=== PATIENT | female | born 1955 | race Caucasian/White ===

== ENCOUNTER 2022-12-29 18:19 | Inpatient (IN) ==
[2022-12-29] MEDS ORDERED: dilTIAZem HCl 5 MG/ML 5 ML VIAL IV STA (18:54)
[2022-12-29] MEDS ORDERED: STAT IV Infusion **Titration per Protocol STA (18:54)
[2022-12-29 18:55] LABS: Basophils # (auto) 0.05 K/uL (0-0.2); Basophils % (auto) 0.4 %; Eosinophils # (auto) 0.09 K/uL (0-0.50); Eosinophils % (auto) 0.7 %; Hematocrit (blood only) 46.1 % (37.0-47.0); Hemoglobin 14.6 g/dl (12.0-16.0); Immature Granulocytes # (auto) 0.03 K/uL (0.01-0.20); Immature Granulocytes % (auto) 0.2 %; Lymphocytes # (auto) 3.39 K/uL (1.2-3.4); Mean Corpuscular Hemoglobin 26.8 pg (25.0-34.0); Mean Corpuscular Hgb Conc 31.7 g/dL (32.0-36.0); Mean Corpuscular Volume 84.6 fL (80.0-100.0); Mean Platelet Volume 9.1 fL (9.4-12.4); Monocytes # (auto) 0.81 K/uL (0.11-0.59); Monocytes % (auto) 6.7 %; Neutrophils # (auto) 7.73 K/uL (1.40-6.50); Platelet Count 340 K/uL (130-400); RDW Coefficient of Variation 16.8 % (11.5-14.5); RDW Standard Deviation 50.9 fL (36.4-46.3); Red Blood Count 5.45 M/uL (4.20-5.40)
--- NOTE | 2022-12-29 18:58 | Emergency Department Note ---
Impression & Plan Atrial fibrillation with rapid ventricular response, Memory changes, Anticoagulant long-term use ED Provider Note Provider: Lna Rivera MD DATE OF SERVICE: 12/29/2022 CHIEF COMPLAINT: Palpitations, A-fib, dizziness, confusion HISTORY OF PRESENT ILLNESS: Patient is a 67-year-old female reported history of diabetes, hyperlipidemia, CAD with stent, and A-fib presenting here today stating she is been in and out of A-fib. Over the past several weeks has been spearing seeing some confusion focus and memory issues and has been worsening. States has been dizzy at times but has not fallen. Denies any significant headache currently but has had some posterior headache at times. Denies si gnificant chest pain. Ports intermittent palpitations. Denies significant leg swelling or GI upset but not much of an appetite. States she is just not feeling herself. Evidently was admitted recently [facility] and was converted back to normal sinus rhythm and discharged. States she has been on metoprolol and taking her Xarelto. Taking just 50 mg of metoprolol extended release. 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 NECK: Trachea midline. Supple. ENT: Mucous membranes pink and moist. LUNGS: Airway patent. No retractions. Breath sounds clear HEART: Irregular irregular rate and rhythm. No chest wall tenderness ABDOMEN: Soft and non-tender, without guarding or rebound. SKIN: Acyanotic, warm, dry, without rashes EXTREMITIES: Without swelling, tenderness or deformity NEUROLOGICAL: No focal deficits. No aphasia. No facial droop or slurred speech. EK bpm atrial fibrillation with rapid ventricular response. No clear acute ST segment elevation or depression with a QTc of approximately 475. CONTINUOUS CARDIAC MONITORING: was ordered and showed a heart rate of 90s-150s bpm in atrial fibrillation 1 view chest x-ray per my interpretation no evidence of pneumonia, pneumothorax, or significant fluid overload/pulmonary edema. No free air under the diaphragm. Patient's laboratory studies and imaging reviewed. Differential includes Premature contractions, electrolyte abnormality, cardiac dysrhythmia, thyroid dysfunction, pulmonary embolism, infection, gastrointestinal, stroke/CVA, infection, as well as other pathologies. IMPRESSION/MEDICAL DECISION MAKING: Patient with known history of atrial fibrillation anticoagulated on Xarelto. Questions some headache as well as some fogginess and fatigue and memory issues and again now back in atrial fibrillation. In rapid ventricular spots upon arrival. Given some diltiazem and diltiazem drip ordered. Anticoagulated appropriately at this time. Ongoing neuro symptoms have been present for several weeks. Sent for CT head to look for any acute intracranial abnormality such as bleeding or evidence of stroke. Blood work here without anemia. Mild leukocytosis but of unclear significance. No severe electrolyte abnormalities with normal renal function. No troponin elevation at this time. May be a bit of decreased appetite but no other GI symptoms. No numbness or tingling or weakness in the extremities. No facial droop or slurred speech at this time. Will bring in for further evaluation of her neuro complaints as well as t reatment of her rapid A-fib. Does not request for records from recent hospitalization at [place]. DIAGNOSIS: A-fib RVR, fatigue and memory issues, hypomagnesemia DISPOSITION: Hospitalist will evaluate Patient was agreeable with this plan. Critical Care I have personally spent 32 minutes of critical care time in the direct management of this patient. This includes bedside care, interpretation of diagnostic studies, and testing, discussion with consultants, patient, and family members, and other required patient management activities. These 32 minutes is in excess of all separately billable procedures. Past Med/Surg History Social History Smoking Status: Never smoker Feels Safe at Home: Yes Allergies Allergies Allergy/AdvReac Type Severity Reaction Status Date / Time fish oil Allergy Severe Anaphylaxis Verified 12/29/22 19:34 morphine AdvReac (makes me Verified 12/29/22 19:34 magdalena) Home Meds Home Medications Medication Instructions Recorded Confirmed atorvastatin 80 mg tablet 80 mg PO DAILY 12/29/22 12/29/22 clopidogrel 75 mg tablet 75 mg PO DAILY 12/29/22 12/29/22 cyanocobalamin (vitamin B-12) 500 500 mcg PO DAILY 12/29/22 12/29/22 mcg tablet (Vitamin B-12) empagliflozin 10 mg tablet 10 mg PO QAM 12/29/22 12/29/22 (Jardiance) ferrous sulfate 325 mg (65 mg 325 mg PO DAILY 12/29/22 12/29/22 iron) tablet (iron) magnesium oxide 400 mg (241.3 mg 400 mg PO DAILY 12/29/22 12/29/22 magnesium) tablet metformin 500 mg tablet 500 mg PO BIDWMEAL 12/29/22 12/29/22 metoprolol succinate 50 mg 50 mg PO HS 12/29/22 12/29/22 tablet,extended release 24 hr pantoprazole 40 mg tablet,delayed 40 mg PO DAILY 12/29/22 12/29/22 release rivaroxaban 20 mg tablet (Xarelto) 20 mg PO DAILY 12/29/22 12/29/22 sacubitril 49 mg-valsartan 51 mg 1 tab PO BID 12/29/22 12/29/22 tablet (Entresto) spironolactone 25 mg tablet 25 mg PO DAILY 12/29/22 12/29/22 Results & Data (ED) Vital Signs Vital Signs - 24 hr 12/29/22 18:25 12/29/22 18:59 12/29/22 18:59 Temperature 36.8 C Temperature Source Temporal Artery Scan Pulse Rate 106 H 140 H Pulse Rate [Apical] Pulse Rhythm Irregular Pulse Rhythm [Apical] Pulse Strength [Apical] Respiratory Rate 20 16 Respiratory Effort / Characteristics Non-Labored Respiratory Depth Normal Respiratory Pattern Blood Pressure 116/80 Blood Pressure [Left Arm] Blood Pressure Mean 92 Blood Pressure Mean [Left Arm] Blood Pressure Position [Left Arm] Pulse Oximetry 95 98 98 Oxygen Delivery Method Room Air Room Air Oxygen Flow Rate 0 0 Sepsis Recent Fever Within 48 Hours No Sepsis New/Unexplained Change in Mental Status N/A Sepsis Action Taken by Nursing No Action Required 12/29/22 19:43 12/29/22 18:55 Temperature Temperature Source Pulse Rate 134 H Pulse Rate [Apical] 117 H Pulse Rhythm Pulse Rhythm [Apical] Irregular Pulse Strength [Apical] Normal Respiratory Rate 16 Respiratory Effort / Characteristics Non-Labored Spontaneous Respiratory Depth Normal Respiratory Pattern Regular Blood Pressure Blood Pressure [Left Arm] 110/84 Blood Pressure Mean Blood Pressure Mean [Left Arm] 92 Blood Pressure Position [Left Arm] Semi-fowlers Pulse Oximetry 96 Oxygen Delivery Method Room Air Oxygen Flow Rate Sepsis Recent Fever Within 48 Hours Sepsis New/Unexplained Change in Mental Status Sepsis Action Taken by Nursing Laboratory Data 12/29/22 18:35 12/29/22 18:35 Lab Results 12/29/22 12/29/22 12/29/22 Range/Units 18:35 18:35 18:35 WBC 12.10 H (4.8-10.8) K/ul RBC 5.45 H (4.20-5.40) M/uL Hgb 14.6 (12.0-16.0) g/dl Hct 46.1 (37.0-47.0) % MCV 84.6 (80.0-100.0) fL MCH 26.8 (25.0-34.0) pg MCHC 31.7 L (32.0-36.0) g/dL RDW Std Deviation 50.9 H (36.4-46.3) fL RDW Coeff of [place] 16.8 H (11.5-14.5) % Plt Count 340 (130-400) K/uL MPV 9.1 L (9.4-12.4) fL Immature Gran % (Auto) 0.2 % Neut % (Auto) 64.0 % Lymph % (Auto) 28.0 % [place] % (Auto) 6.7 % Eos % (Auto) 0.7 % Baso % (Auto) 0.4 % Neut # (Auto) 7.73 H (1.40-6.50) K/uL Lymph # (Auto) 3.39 (1.2-3.4) K/uL [place] # (Auto) 0.81 H (0.11-0.59) K/uL Eos # (Auto) 0.09 (0-0.50) K/uL Baso # (Auto) 0.05 (0-0.2) K/uL Immature Gran # (Auto) 0.03 (0.01-0.20) K/uL PT 14.6 H (9.0-12.0) Seconds INR 1.4 H (0.9-1.1) APTT 31.7 H (21.0-31.0) Seconds PTT Ratio 1.1 Sodium 137 (136-145) mmol/L Potassium 3.9 (3.5-5.1) mmol/L Chloride 106 (98-107) mmol/L Carbon Dioxide 23 (21-32) mmol/L Anion Gap 8 (3-11) BUN 27 H (6-23) mg/dl Creatinine 1.11 (0.6-1.2) mg/dl Est Cr Clr Drug Dosing 44.2 ml/min Est GFR ( Amer) 59.5 ml/min Est GFR (Non-Af Amer) 51.3 ml/min BUN/Creatinine Ratio 24.3 H (10-20) Glucose 99 (70-99(Fasting)) mg/dl Calcium 9.8 (8.6-10.3) mg/dl Magnesium 1.6 L (1.7-2.4) mg/dl Total Bilirubin 0.8 (0.2-1.0) mg/dl AST 17 (13-39) U/L ALT 22 (7-52) U/L Alkaline Phosphatase 101 (34-104) U/L Troponin I High Sens 12.1 (0-14) pg/ml Total Protein 7.4 (6.0-8.3) gm/dl Albumin 4.2 (3.4-5.0) gm/dl Globulin 3.2 (2.5-4.0) gm/dl Albumin/Globulin Ratio 1.3 (0.9-2) TSH (0.300-4.500) uIu/ml Urine Color Urine Appearance (Clear) Urine pH (4.5-7.5) Ur Specific [place] (1.000-1.030) Urine Protein (Negative) Urine Glucose (UA) (Negative) Urine Ketones (Negative) Urine Blood (Negative) Urine Nitrite (Negative) Urine Bilirubin (Negative) Urine Urobilinogen (Negative) Ur Leukocyte Esterase (Negative) Urine WBC (Auto) (0-5) /hpf Urine RBC (Auto) (0-4) /hpf U Hyaline Cast (Auto) (0-5) /lpf U Epithel Cells (Auto) (0-5) /lpf Urine Bacteria (Auto) (Negative) SARS-CoV-2, RNA, NAAT (NEGATIVE) 12/29/22 12/29/22 12/29/22 Range/Units 18:35 19:30 19:38 WBC (4.8-10.8) K/ul RBC (4.20-5.40) M/uL Hgb (12.0-16.0) g/dl Hct (37.0-47.0) % MCV (80.0-100.0) fL MCH (25.0-34.0) pg MCHC (32.0-36.0) g/dL RDW Std Deviation (36.4-46.3) fL RDW Coeff of [place] (11.5-14.5) % Plt Count (130-400) K/uL MPV (9.4-12.4) fL Immature Gran % (Auto) % Neut % (Auto) % Lymph % (Auto) % [place] % (Auto) % Eos % (Auto) % Baso % (Auto) % Neut # (Auto) (1.40-6.50) K/uL Lymph # (Auto) (1.2-3.4) K/uL [place] # (Auto) (0.11-0.59) K/uL Eos # (Auto) (0-0.50) K/uL Baso # (Auto) (0-0.2) K/uL Immature Gran # (Auto) (0.01-0.20) K/uL PT (9.0-12.0) Seconds INR (0.9-1.1) APTT (21.0-31.0) Seconds PTT Ratio Sodium (136-145) mmol/L Potassium (3.5-5.1) mmol/L Chloride (98-107) mmol/L Carbon Dioxide (21-32) mmol/L Anion Gap (3-11) BUN (6-23) mg/dl Creatinine (0.6-1.2) mg/dl Est Cr Clr Drug Dosing ml/min Est GFR ( Amer) ml/min Est GFR (Non-Af Amer) ml/min BUN/Creatinine Ratio (10-20) Glucose (70-99(Fasting)) mg/dl Calcium (8.6-10.3) mg/dl Magnesium (1.7-2.4) mg/dl Total Bilirubin (0.2-1.0) mg/dl AST (13-39) U/L ALT (7-52) U/L Alkaline Phosphatase (34-104) U/L Troponin I High Sens (0-14) pg/ml Total Protein (6.0-8.3) gm/dl Albumin (3.4-5.0) gm/dl Globulin (2.5-4.0) gm/dl Albumin/Globulin Ratio (0.9-2) TSH 1.537 (0.300-4.500) uIu/ml Urine Color Yellow Urine Appearance Clear (Clear) Urine pH 5.5 (4.5-7.5) Ur Specific [place] 1.017 (1.000-1.030) Urine Protein Negative (Negative) Urine Glucose (UA) 3+ H (Negative) Urine Ketones Negative (Negative) Urine Blood Negative (Negative) Urine Nitrite Negative (Negative) Urine Bilirubin Negative (Negative) Urine Urobilinogen Negative (Negative) Ur Leukocyte Esterase 1+ H (Negative) Urine WBC (Auto) 1-5 (0-5) /hpf Urine RBC (Auto) 0-4 (0-4) /hpf U Hyaline Cast (Auto) 0 (0-5) /lpf U Epithel Cells (Auto) 10-20 H (0-5) /lpf Urine Bacteria (Auto) Negative (Negative) SARS-CoV-2, RNA, NAAT NEGATIVE (NEGATIVE) Administered Medications Diltiazem HCl 125 mg/ Dextrose 125 mls @ 7.5 mls/hr IV .[id number] [facility]; Protocol Stop: 01/28/23 18:59 Last Titration: 12/29/22 20:13 Dose: 7.5 mg/hr, 7.5 mls/hr Documented By: ZUHAIR Co-signed By: DAPHNE Admin: 12/29/22 19:31 Dose: 5 mg/hr, 5 mls/hr Documented By: ZUHAIR Co-signed By: DAPHNE Magnesium Sulfate/Dextrose (Magnesium Sulfate / D5w) 1 gm in 100 mls @ 200 mls/hr IV Q30M [facility] Stop: 12/29/22 21:14 Last Admin: 12/29/22 20:47 Dose: 200 mls/hr Documented By: Infusion: 12/29/22 20:42 Dose: 0 mls/hr Documented By: Admin: 12/29/22 20:12 Dose: 200 mls/hr Documented By: ZUHAIR Discontinued Medications Diltiazem HCl (Diltiazem Hcl 5 Mg/Ml 5 Ml Vial) 10 mg IV NOW STA Stop: 12/29/22 18:55 Last Admin: 12/29/22 19:07 Dose: 10 mg Documented By: ZUHAIR Co-signed By: DAPHNE Miscellaneous (Stat Iv Infusion Titration Per Protocol) 1 each N/A NOW STA Stop: 12/29/22 18:55 Last Admin: 12/29/22 19:45 Dose: Not Given Documented By: ZUHAIR Imaging Data Radiologist's Impression: Head CT 12/29/22 18:54 Exam(s): CT HEAD Without Contrast EXAM: CT Head Without Intravenous Contrast CLINICAL HISTORY: Reason for exam: confusion. TECHNIQUE: Axial computed tomography images of the head/brain without intravenous contrast. CTDI is 37.22 mGy and DLP is 624.41 mGy-cm. Automated exposure control was utilized for the study. A dose lowering technique was utilized adhering to the principles of ALARA. COMPARISON: No relevant prior studies available. FINDINGS: Brain: Unremarkable. No hemorrhage. No significant white matter disease. No edema. Ventricles: Unremarkable. No ventriculomegaly. Bones/joints: Unremarkable. No acute fracture. Soft tissues: Unremarkable. Sinuses: Unremarkable as visualized. No acute sinusitis. Mastoid air cells: Unremarkable as visualized. No mastoid effusion. IMPRESSION: Normal head/brain CT. Electronically signed by: Sharif Barillas MD 12/29/22 20:19 PM Discharge Plan Visit Data Chief Complaint: Cardiac Assessment Stated Complaint: A FIB,CONFUSION ED Provider: Lan Rivera Discharge Problem: Atrial fibrillation with rapid ventricular response, Memory changes, Anticoagulant long-term use Patient Disposition: Being Evaluated by Hospitalist Forms Stand Alone Forms: [employer] Prescriptions Prescriptions: No Action metformin 500 mg tablet 500 mg PO BIDWMEAL atorvastatin 80 mg tablet 80 mg PO DAILY metoprolol succinate 50 mg tablet extended release 24 hr 50 mg PO HS clopidogrel 75 mg tablet 75 mg PO DAILY spironolactone 25 mg tablet 25 mg PO DAILY magnesium oxide 400 mg (241.3 mg magnesium) tablet 400 mg PO DAILY pantoprazole 40 mg tablet,delayed release (DR/EC) 40 mg PO DAILY Xarelto 20 mg tablet 20 mg PO DAILY Jardiance 10 mg tablet 10 mg PO QAM Entresto 49-51 mg tablet 1 tab PO BID cyanocobalamin (vitamin B-12) [Vitamin B-12] 500 mcg Tablet 500 mcg PO DAILY ferrous sulfate [iron] 325 mg (65 mg iron) Tablet 325 mg PO DAILY Referrals Referrals: PCP,NO [Primary Care Provider] -
[2022-12-29 19:12] LABS: Albumin Globulin Ratio 1.3 (0.9-2); Albumin Level 4.2 gm/dl (3.4-5.0); BUN Creatinine Ratio 24.3 (10-20); Bilirubin,Total 0.8 mg/dl (0.2-1.0); Calcium 9.8 mg/dl (8.6-10.3); Creatinine Clr Calc Pharmacy 44.2 ml/min; Est GFR (African American) 59.5 ml/min; Est GFR (Non-African American) 51.3 ml/min; Globulin 3.2 gm/dl (2.5-4.0); Potassium 3.9 mmol/L (3.5-5.1); Total Protein 7.4 gm/dl (6.0-8.3)
[2022-12-29 19:18] LABS: Troponin I High Sensitivity 12.1 pg/ml (0-14)
[2022-12-29 19:24] LABS: INR 1.4 (0.9-1.1); Partial Thromboplastin Ratio 1.1; Partial Thromboplastin Time 31.7 Seconds (21.0-31.0); Prothrombin Time 14.6 Seconds (9.0-12.0)
[2022-12-29] MEDS: dilTIAZem HCL 125 MG in DEXTROSE 5% 100 ML IV SCH (19:31)
[2022-12-29 19:39] LABS: Magnesium 1.6 mg/dl (1.7-2.4)
[2022-12-29] MEDS: MAGNESIUM SULFATE / D5W 1 GM/100 ML BAG IV SCH ×2 (20:12→20:47)
[2022-12-29 20:17] LABS: Appearance Urine Clear (Clear); Bacteria Urine Automated Negative (Negative); Bilirubin Urine Negative (Negative); Blood Urine Negative (Negative); Cast Urine Automated 0 /lpf (0-5); Color Urine Yellow; Glucose Urine UA 3+ (Negative); Ketones Urine Negative (Negative); Leukocyte Esterase Urine 1+ (Negative); Nitrite Urine Negative (Negative); Protein Urine Negative (Negative); RBC Urine Automated 0-4 /hpf (0-4); Specific Gravity Urine 1.017 (1.000-1.030); Urobilinogen Urine Negative (Negative); pH Urine 5.5 (4.5-7.5)
--- NOTE | 2022-12-29 20:19 | CT Scan Report ---
Exam(s): CT HEAD Without Contrast EXAM: CT Head Without Intravenous Contrast CLINICAL HISTORY: Reason for exam: confusion. TECHNIQUE: Axial computed tomography images of the head/brain without intravenous contrast. CTDI is 37.22 mGy and DLP is 624.41 mGy-cm. Automated exposure control was utilized for the study. A dose lowering technique was utilized adhering to the principles of ALARA. COMPARISON: No relevant prior studies available. FINDINGS: Brain: Unremarkable. No hemorrhage. No significant white matter disease. No edema. Ventricles: Unremarkable. No ventriculomegaly. Bones/joints: Unremarkable. No acute fracture. Soft tissues: Unremarkable. Sinuses: Unremarkable as visualized. No acute sinusitis. Mastoid air cells: Unremarkable as visualized. No mastoid effusion. IMPRESSION: Normal head/brain CT. Electronically signed by: Sharif Barillas MD 12/29/22 20:19 PM
--- NOTE | 2022-12-29 20:51 | History & Physical Report ---
Date of Service December 29, 2022 Assessment & Plan (1) Atrial fibrillation with rapid ventricular response: Plan: 67 yo female with PMHx HLD, DM2, CAD w/ stent, CHF, and afib on xarelto presents with afib rvr and confusion. #Afib w/ RVR -presents with 3 weeks of increased frequency of symptomatic afib rvr. HR 140 on arrival. -chronically on xarelto and metoprolol, continue. -started on diltiazem bolus/drip in ED, continue. As below would reconsider diltiazem drip if EF found to be low or becomes hypotensive and consider amiodarone vs digoxin instead. -echo pending -cardiology consulted #Confusion -presented with 3 weeks intermittent confusion, brain fog, dizziness. Ddx hypoperfusion 2/2 afib rvr, stroke, age related changes. Mild leukocytosis however does not appear to be infectious etiology. -CT head negative -ordered MRI to r/o stroke -afib control as above -cont. to monitor #CAD w/ stent #History of CHF -had massive [place] with cardiac arrest 2 years ago which required stenting. EF was suppressed following this with subsequent improvement with EF in 50s per patient history. In process of obtaining medical records from [place]. -cont. plavix, metoprolol, Entresto, spironolactone. #HLD -cont. home statin #DM2 -hold home Jardiance, metformin -started SSI #GERD -cont. home pantoprazole DVT ppx: xarelto FEN/GI: HH, DM2 Code Status: full Dispo: PCU (2) Hyperlipidemia: (3) DM2 (diabetes mellitus, type 2): (4) CAD (coronary artery disease): (5) History of intravascular stent placement: (6) History of CHF (congestive heart failure): (7) Confusion: History of Present Illness Chief Complaint: afib, confusion Primary Care Provider: NO PCP 67 yo female with PMHx HLD, DM2, CAD w/ stent, CHF, and afib on xarelto presents with afib rvr and confusion. 3 weeks ago patient started having increased frequency of palpitations and dizziness which she states is due to her afib when HR is >130s. This occurs as many as 3-4x/day. Since symptom onset she also endorses having periods of intermittent confusion and brain fog which is new for her. Denies falls. Denies fever, headache, vision changes, chest pain, shortness of breath, abdominal pain, nausea, vomiting, constipation, diarrhea, dysuria, extremity paresthesia/weakness. She has been compliant with her home medications. She follows with Dr. Avila at [facility] for her heart issues. She has been compliant with her medications. Of note she was recently seen in [place] 3 days ago for similar symptoms. She was deemed stable for discharge and had a follow-up appointment with her front desk manager scheduled for March. Per patient, her last echo was about a year ago with EF in the 50s which was improved from previous EF in the 20s following [place]/arrest and stent placement. Allergies Allergy/AdvReac Type Severity Reaction Status Date / Time fish oil Allergy Severe Anaphylaxis Verified 12/29/22 19:34 morphine AdvReac (makes me Verified 12/29/22 19:34 crazy) Home Medications Medication Instructions Recorded Confirmed Type atorvastatin 80 mg tablet 80 mg PO DAILY 12/29/22 12/29/22 History clopidogrel 75 mg tablet 75 mg PO DAILY 12/29/22 12/29/22 History cyanocobalamin (vitamin B-12) 500 500 mcg PO DAILY 12/29/22 12/29/22 History mcg tablet (Vitamin B-12) empagliflozin 10 mg tablet 10 mg PO QAM 12/29/22 12/29/22 History (Jardiance) ferrous sulfate 325 mg (65 mg 325 mg PO DAILY 12/29/22 12/29/22 History iron) tablet (iron) magnesium oxide 400 mg (241.3 mg 400 mg PO DAILY 12/29/22 12/29/22 History magnesium) tablet metformin 500 mg tablet 500 mg PO BIDWMEAL 12/29/22 12/29/22 History metoprolol succinate 50 mg 50 mg PO HS 12/29/22 12/29/22 History tablet,extended release 24 hr pantoprazole 40 mg tablet,delayed 40 mg PO DAILY 12/29/22 12/29/22 History release rivaroxaban 20 mg tablet (Xarelto) 20 mg PO DAILY 12/29/22 12/29/22 History sacubitril 49 mg-valsartan 51 mg 1 tab PO BID 12/29/22 12/29/22 History tablet (Entresto) spironolactone 25 mg tablet 25 mg PO DAILY 12/29/22 12/29/22 History Past Med/Surg History Social History Smoking Status: Never smoker Feels Safe at Home: Yes Review of Systems Review of Systems: All systems reviewed & are unremarkable except as noted in HPI & below Physical Exam Physical Exam: Constitutional: in no acute distress, pleasant and normal affect, intact memory. AOx3. Vitals as above. HEENT: No scleral injection or discharge. Moist mucous membranes. Neck: Supple without lymphadenopathy or thyromegaly. Trachea midline. Lungs: Clear to auscultation bilaterally with good effort. No wheezes/rales/rhonchi. No JVD. Cardiac: Regular rate and rhythm.No murmurs.Trace extremity edema. 2+ distal peripheral pulses. Abdomen: Bowel sounds present. Soft, nontender, and nondistended.No guarding. No hepatosplenomegaly. MSK: No cyanosis or clubbing. Extremities motor strength 5/5. Skin: No abnormal rashes, warm, dry. Neurologic:Grossly intact cranial nerves. PERRL. EOMI. Results & Data Results & Data Vital Signs (Past 12 Hours) Vital Signs Temp Pulse Pulse Resp BP BP Pulse Ox 12/29/22 18:55 134 H 12/29/22 19:43 117 H 16 110/84 96 12/29/22 18:59 140 H 16 98 12/29/22 18:59 98 12/29/22 18:25 36.8 C 106 H 20 116/80 95 O2 Del Method O2 Flow Rate 12/29/22 18:55 12/29/22 19:43 Room Air 12/29/22 18:59 Room Air 0 12/29/22 18:59 Room Air 0 12/29/22 18:25 Laboratory Results Laboratory Results WBC 12.10 K/ul (4.8-10.8) H 12/29/22 18:35 RBC 5.45 M/uL (4.20-5.40) H 12/29/22 18:35 Hgb 14.6 g/dl (12.0-16.0) 12/29/22 18:35 Hct 46.1 % (37.0-47.0) 12/29/22 18:35 MCV 84.6 fL (80.0-100.0) 12/29/22 18:35 MCH 26.8 pg (25.0-34.0) 12/29/22 18:35 MCHC 31.7 g/dL (32.0-36.0) L 12/29/22 18:35 RDW Std Deviation 50.9 fL (36.4-46.3) H 12/29/22 18:35 RDW Coeff of Sabra 16.8 % (11.5-14.5) H 12/29/22 18:35 Plt Count 340 K/uL (130-400) 12/29/22 18:35 MPV 9.1 fL (9.4-12.4) L 12/29/22 18:35 Immature Gran % (Auto) 0.2 % 12/29/22 18:35 Neut % (Auto) 64.0 % 12/29/22 18:35 Lymph % (Auto) 28.0 % 12/29/22 18:35 [place] % (Auto) 6.7 % 12/29/22 18:35 Eos % (Auto) 0.7 % 12/29/22 18:35 Baso % (Auto) 0.4 % 12/29/22 18:35 Neut # (Auto) 7.73 K/uL (1.40-6.50) H 12/29/22 18:35 Lymph # (Auto) 3.39 K/uL (1.2-3.4) 12/29/22 18:35 [place]inn # (Auto) 0.81 K/uL (0.11-0.59) H 12/29/22 18:35 Eos # (Auto) 0.09 K/uL (0-0.50) 12/29/22 18:35 Baso # (Auto) 0.05 K/uL (0-0.2) 12/29/22 18:35 Immature Gran # (Auto) 0.03 K/uL (0.01-0.20) 12/29/22 18:35 PT 14.6 Seconds (9.0-12.0) H 12/29/22 18:35 INR 1.4 (0.9-1.1) H 12/29/22 18:35 APTT 31.7 Seconds (21.0-31.0) H 12/29/22 18:35 PTT Ratio 1.1 12/29/22 18:35 Sodium 137 mmol/L (136-145) 12/29/22 18:35 Potassium 3.9 mmol/L (3.5-5.1) 12/29/22 18:35 Chloride 106 mmol/L (98-107) 12/29/22 18:35 Carbon Dioxide 23 mmol/L (21-32) 12/29/22 18:35 Anion Gap 8 (3-11) 12/29/22 18:35 BUN 27 mg/dl (6-23) H 12/29/22 18:35 Creatinine 1.11 mg/dl (0.6-1.2) 12/29/22 18:35 Est Cr Clr Drug Dosing 44.2 ml/min 12/29/22 18:35 Est GFR ( Amer) 59.5 ml/min 12/29/22 18:35 Est GFR (Non-Af Amer) 51.3 ml/min 12/29/22 18:35 BUN/Creatinine Ratio 24.3 (10-20) H 12/29/22 18:35 Glucose 99 mg/dl (70-99(Fasting)) 12/29/22 18:35 Calcium 9.8 mg/dl (8.6-10.3) 12/29/22 18:35 Magnesium 1.6 mg/dl (1.7-2.4) L 12/29/22 18:35 Total Bilirubin 0.8 mg/dl (0.2-1.0) 12/29/22 18:35 AST 17 U/L (13-39) 12/29/22 18:35 ALT 22 U/L (7-52) 12/29/22 18:35 Alkaline Phosphatase 101 U/L (34-104) 12/29/22 18:35 Troponin I High Sens 12.1 pg/ml (0-14) 12/29/22 18:35 Total Protein 7.4 gm/dl (6.0-8.3) 12/29/22 18:35 Albumin 4.2 gm/dl (3.4-5.0) 12/29/22 18:35 Globulin 3.2 gm/dl (2.5-4.0) 12/29/22 18:35 Albumin/Globulin Ratio 1.3 (0.9-2) 12/29/22 18:35 TSH 1.537 uIu/ml (0.300-4.500) 12/29/22 18:35 Urine Color Yellow 12/29/22 19:30 Urine Appearance Clear (Clear) 12/29/22 19:30 Urine pH 5.5 (4.5-7.5) 12/29/22 19:30 Ur Specific [place] 1.017 (1.000-1.030) 12/29/22 19:30 Urine Protein Negative (Negative) 12/29/22 19:30 Urine Glucose (UA) 3+ (Negative) H 12/29/22 19:30 Urine Ketones Negative (Negative) 12/29/22 19:30 Urine Blood Negative (Negative) 12/29/22 19:30 Urine Nitrite Negative (Negative) 12/29/22 19:30 Urine Bilirubin Negative (Negative) 12/29/22 19:30 Urine Urobilinogen Negative (Negative) 12/29/22 19:30 Ur Leukocyte Esterase 1+ (Negative) H 12/29/22 19:30 Urine WBC (Auto) 1-5 /hpf (0-5) 12/29/22 19:30 Urine RBC (Auto) 0-4 /hpf (0-4) 12/29/22 19:30 U Hyaline Cast (Auto) 0 /lpf (0-5) 12/29/22 19:30 U Epithel Cells (Auto) 10-20 /lpf (0-5) H 12/29/22 19:30 Urine Bacteria (Auto) Negative (Negative) 12/29/22 19:30 SARS-CoV-2, RNA, NAAT NEGATIVE (NEGATIVE) 12/29/22 19:[address] 12/29/22 18:54 Exam(s): CT HEAD Without Contrast EXAM: CT Head Without Intravenous Contrast CLINICAL HISTORY: Reason for exam: confusion. TECHNIQUE: Axial computed tomography images of the head/brain without intravenous contrast. CTDI is 37.22 mGy and DLP is 624.41 mGy-cm. Automated exposure control was utilized for the study. A dose lowering technique was utilized adhering to the principles of ALARA. COMPARISON: No relevant prior studies available. FINDINGS: Brain: Unremarkable. No hemorrhage. No significant white matter disease. No edema. Ventricles: Unremarkable. No ventriculomegaly. Bones/joints: Unremarkable. No acute fracture. Soft tissues: Unremarkable. Sinuses: Unremarkable as visualized. No acute sinusitis. Mastoid air cells: Unremarkable as visualized. No mastoid effusion. IMPRESSION: Normal head/brain CT. Electronically signed by: Sharif Barillas MD 12/29/22 20:19 PM Supervising Physician Co-Signing Physician Notes Patient seen and examined, chart reviewed, case discussed with Kamaljit Tong, DO and I agree with the assessment and plan as above except as otherwise noted Labs and images reviewed 67-year-old female with a past medical history of A-fib, CHF, CAD with PCI, DM 2, hyperlipidemia who presented with A-fib RVR and several weeks of feeling confused/foggy which is unusual and acute in the last 3 weeks. She reports that she had a previously reduced ejection fraction, but on her last echo last year her EF had normalized. She reports she does not feel her A-fib unless it is going very fast, up to the 150s. Thinks that she may have had a rate in the 130s more often as she has been very tired the last 3 weeks. She has been taking all of her medications as directed and has not missed doses. At bedside heart rate has improved to 90s, BP in [id number] systolic. Suspect her fatigue is due to poorly controlled A-fib with RVR. CHF medications suggest reduced ejection fraction, however patient is a reliable historian and is very clear that her EF has normalized. Given this reasonable to continue diltiazem gtt. for rate control at this time. If her BP becomes lower than expected with adequate rate control or if echo shows ejection fraction would transition to either amiodarone or digoxin for rate control; her renal function is normal. No chest pain at visit. With respect to her memory issues feel most of these are c hronic and be worked up outpatient, may have some level of chronic fatigue with poorly controlled A-fib. She is compliant with anticoagulation and Plavix, and has no other focal neurologic symptoms. Agree with checking B12 levels. Agree with management above Resident Activity Tracking Resident Involvement: Resident Care Provided Care Provided: Adult [facility]
[2022-12-29] MEDS ORDERED: ACETAMINOPHEN 325 MG TAB PO PRN (21:37)
[2022-12-29] MEDS ORDERED: CARBOHYDRATES FOR HYPOGLYCEMIA PO PRN (21:37)
[2022-12-29] MEDS ORDERED: DEXTROSE 50% 50 ML SYRINGE IV PRN (21:37)
[2022-12-29] MEDS ORDERED: GLUCOSE 10 TAB/TUBE PO PRN (21:37)
[2022-12-29] MEDS ORDERED: GLUCOSE 40% GEL 15 GM TUBE PO PRN (21:37)
[2022-12-29] MEDS ORDERED: ONDANSETRON 4 MG OD TAB PO PRN (21:37)
[2022-12-29] MEDS ORDERED: GLUCAGON FOR INJ 1 MG VIAL SQ PRN (21:37)
[2022-12-29] MEDS ORDERED: POLYETHYLENE (MIRALAX) 17 GM PACK PO PRN (21:37)
--- NOTE | 2022-12-29 21:48 | Billing Data ---
Date of Service December 29, 2022 Coding Level of Care Code 61640 INT INP/OBS CARE
[2022-12-30] MEDS: VALSARTAN/SACUBITRIL 51/49 MG TAB PO SCH ×2 (00:34→08:38)
[2022-12-30 04:41] LABS: Basophils # (auto) 0.05 K/uL (0-0.2); Basophils % (auto) 0.6 %; Eosinophils # (auto) 0.17 K/uL (0-0.50); Hematocrit (blood only) 43.1 % (37.0-47.0); Hemoglobin 13.9 g/dl (12.0-16.0); Immature Granulocytes # (auto) 0.01 K/uL (0.01-0.20); Immature Granulocytes % (auto) 0.1 %; Lymphocytes # (auto) 2.58 K/uL (1.2-3.4); Lymphocytes % (auto) 30.4 %; Mean Corpuscular Hemoglobin 26.9 pg (25.0-34.0); Mean Corpuscular Hgb Conc 32.3 g/dL (32.0-36.0); Mean Corpuscular Volume 83.4 fL (80.0-100.0); Mean Platelet Volume 9.2 fL (9.4-12.4); Monocytes # (auto) 0.67 K/uL (0.11-0.59); Monocytes % (auto) 7.9 %; Neutrophils # (auto) 5.01 K/uL (1.40-6.50); Platelet Count 297 K/uL (130-400); RDW Coefficient of Variation 16.4 % (11.5-14.5); RDW Standard Deviation 49.8 fL (36.4-46.3); Red Blood Count 5.17 M/uL (4.20-5.40); White Blood Count 8.49 K/ul (4.8-10.8)
[2022-12-30 05:12] LABS: INR 1.1 (0.9-1.1); Partial Thromboplastin Time 27.3 Seconds (21.0-31.0); Prothrombin Time 12.1 Seconds (9.0-12.0)
[2022-12-30 05:22] LABS: BUN Creatinine Ratio 32.3 (10-20); Creatinine Clr Calc Pharmacy 79.1 ml/min; Est GFR (African American) 108.1 ml/min; Est GFR (Non-African American) 93.3 ml/min; Magnesium 1.7 mg/dl (1.7-2.4); Potassium 3.8 mmol/L (3.5-5.1)
--- NOTE | 2022-12-30 07:46 | XRay Report ---
XR chest 1V portable HISTORY: Chest pain, nonspecific COMPARISON: None. FINDINGS: Left basilar linear densities consistent with subsegmental atelectasis. Otherwise, the lung s are clear. The heart is mildly enlarged. No pleural effusions. No pneumothorax. No acute fractures identified. IMPRESSION: Mild cardiomegaly. Otherwise, no acute process within the chest. ACT 112: Negative or not required by law. Electronically signed by: Kamar Crisostomo M.D. 12/30/2022 7:44 AM
--- NOTE | 2022-12-30 08:33 | Electrocardiogram Report ---
Test Reason : Blood Pressure : / mmHG Vent. Rate : 154 BPM Atrial Rate : 150 BPM P-R Int : 000 ms QRS Dur : 068 ms QT Int : 258 ms P-R-T Axes : 000 024 045 degrees QTc Int : 413 ms Atrial fibrillation with rapid ventricular response Low voltage QRS Poor R wave progression, consider anterior [place] vs. lead placement vs. LVH Abnormal ECG No previous ECGs available Confirmed by Evans Owens ([id number]) on 12/30/2022 8:32:58 AM Referred By: REFERRED SELF Confirmed By:Evans Owens
--- NOTE | 2022-12-30 08:33 | Electrocardiogram Report ---
Test Reason : Blood Pressure : / mmHG Vent. Rate : 138 BPM Atrial Rate : 000 BPM P-R Int : 000 ms QRS Dur : 070 ms QT Int : 314 ms P-R-T Axes : 000 017 062 degrees QTc Int : 475 ms Atrial fibrillation with rapid ventricular response Low voltage QRS Poor R wave progression, consider anterior [place] vs. lead placement vs. LVH Abnormal ECG When compared with ECG of 29-DEC-2022 18:32, HR has decreased by 16 bpm Otherwise no significant change Confirmed by Evans Owens ([id number]) on 12/30/2022 8:33:39 AM Referred By: REFERRED SELF Confirmed By:Evans Owens
[2022-12-30] MEDS: dilTIAZem HCL 125 MG in DEXTROSE 5% 100 ML IV SCH (08:38)
[2022-12-30] MEDS: INSULIN ASPART PER UNIT CHARGE SC SCH ×2 (08:41→11:39)
[2022-12-30] MEDS ORDERED: ATORVASTATIN 40 MG TAB PO SCH (09:00)
[2022-12-30] MEDS ORDERED: RIVAROXABAN 20 MG TAB PO SCH (09:00)
[2022-12-30] MEDS ORDERED: CLOPIDOGREL BISULFATE 75 MG TAB PO SCH (09:00)
[2022-12-30] MEDS ORDERED: SPIRONOLACTONE 25 MG TAB PO SCH (09:00)
[2022-12-30] MEDS ORDERED: PANTOprazole 40 MG TAB PO SCH (09:00)
--- NOTE | 2022-12-30 10:46 | XCELERA ---
[id number]
[2022-12-30] MEDS ORDERED: METOPROLOL SUCC 50MG EXT REL TAB PO SCH ×2 (12:15→21:00)
--- NOTE | 2022-12-30 15:07 | Cardiology Consultation ---
Date of Consultation December 30, 2022 Assessment & Plan (1) Atrial fibrillation with rapid ventricular response: Patient with recent hospitalization for recurrent atrial fibrillation, where it had been recommended that she increase her beta-silvana dose but she was concerned about borderline bradycardia. She is receiving a diltiazem infusion currently, would recommend stopping diltiazem infusion and increasing her beta-silvana dose from metoprolol succinate 50 mg daily to 50 mg twice daily. Explained to her that bradycardia alone would not be a contraindication to higher beta-silvana dose, as long as it was not causing any symptoms. She will attempt a higher dose of beta-silvana, if she notes excessive fatigue or dyspnea would need to consider initiation of antiarrhythmic. Prefer to to defer initiation of antiarrhythmic to her primary vitreo retinal surgeon, Dr. Avila in [place]. Agree with repletion of magnesium to reduce risk of recurrent atrial fibrillation. Continue her magnesium supplement upon discharge, personally I prefer Slow-Mag over mag oxide given lower risk of diarrhea, regardless of magnesium supplement would increase dose given her hypomagnesemia on admission. Continue anticoagulation with rivaroxaban. (2) Confusion: Etiology uncertain, unlikely to be secondary to atrial fibrillation as there is no evidence of hypotension or hypoperfusion. Indirectly, if she is feeling poorly and sleeping poorly and exercising less this could cause some degree of distraction and mild cognitive dysfunction, but this would not be directly attributable to her atrial fibrillation or cardiac status. No focal neurologic symptoms to suggest thromboembolic event or other underlying neurologic condition. (3) CAD (coronary artery disease): Given presence of intracoronary stent would continue clopidogrel even while on rivaroxaban. Continue high-dose atorvastatin. (4) History of intravascular stent placement: As above. (5) History of cardiomyopathy: She has prior history of cardiomyopathy but has normal systolic function currently, would continue Entresto and spironolactone to help prevent recurrent cardiomyopathy. Metoprolol succinate is also part of guideline directed therapy, as noted the dose will be adjusted to address her recurrent atrial fibrillation. History of Present Illness Reason for Consultation: A-fib RVR Requesting Physician: Kamaljit Tong DO Attending Physician: Omar Medina MD History of Present Illness 67-year-old woman with history of CAD ([place] with stenting 2020), paroxysmal atrial fibrillation (metoprolol/rivaroxaban), otherwise generally healthy who is followed by Dr. Avila at [facility] in [place] for cardiology issues who presents with tachypalpitations, fatigue, and difficulty concentrating and who was found to have recurrence of atrial fibrillation with rapid ventricular response. She was hospitalized just a few weeks ago in [place], records were not immediately available but sounds as if she may have received a diltiazem infusion there as well and she notes spontaneous reversion to sinus rhythm. She was instructed to increase her metoprolol succinate from 50 mg daily to 75 mg daily, but she became concerned because her heart rate was in the 60 bpm range so she did not take the additional 25 mg increment in her dose. She does not note continuous tachypalpitations, but has noted them from time to time. Over the past few days she notes increased fatigue and feels that she has difficulty with "brain fog" but notes no focal neurologic symptoms. She she denies chest pain, dyspnea on exertion, leg edema, orthopnea, or PND. No major lightheadedness, presyncope, or syncope. She is actually able to exercise and does so on an exercise bicycle daily. She does not note a major decline in her exercise tolerance. She was comfortable at the time of my evaluation with no somatic complaints. Allergies Allergy/AdvReac Type Severity Reaction Status Date / Time fish oil Allergy Severe Anaphylaxis Verified 12/29/22 19:34 morphine AdvReac (makes me Verified 12/29/22 19:34 crazy) Home Medications Medication Instructions Recorded Confirmed Type atorvastatin 80 mg tablet 80 mg PO DAILY 12/29/22 12/29/22 History clopidogrel 75 mg tablet 75 mg PO DAILY 12/29/22 12/29/22 History cyanocobalamin (vitamin B-12) 500 500 mcg PO DAILY 12/29/22 12/29/22 History mcg tablet (Vitamin B-12) empagliflozin 10 mg tablet 10 mg PO QAM 12/29/22 12/29/22 History (Jardiance) ferrous sulfate 325 mg (65 mg 325 mg PO DAILY 12/29/22 12/29/22 History iron) tablet (iron) magnesium oxide 400 mg (241.3 mg 400 mg PO DAILY 12/29/22 12/29/22 History magnesium) tablet metformin 500 mg tablet 500 mg PO BIDWMEAL 12/29/22 12/29/22 History metoprolol succinate 50 mg 50 mg PO HS 12/29/22 12/29/22 History tablet,extended release 24 hr pantoprazole 40 mg tablet,delayed 40 mg PO DAILY 12/29/22 12/29/22 History release rivaroxaban 20 mg tablet (Xarelto) 20 mg PO DAILY 12/29/22 12/29/22 History sacubitril 49 mg-valsartan 51 mg 1 tab PO BID 12/29/22 12/29/22 History tablet (Entresto) spironolactone 25 mg tablet 25 mg PO DAILY 12/29/22 12/29/22 History Patient History Social History Smoking Status: Never smoker Hx Alcohol Use: No Hx Substance Use: No Preferred Language: Maori Communication Ability: Effective Cup Setter Lockstitch Required: No Beliefs That Will Affect Care: None Current Living Situation: Spouse and Family Other Information That Helps Us Care for You: No Feels Safe at Home: Yes Safety Concerns: Feels Safe At This Time Assistive Devices: Glasses Physical Exam Physical Exam: Adult white female in no distress. Normotensive Pulse 100 bpm and irregular. Skin: no ecchymoses or generalized lesions. HEENT: unremarkable. Neck: JVP at the clavicle at 90 degrees, no carotid bruits. Lungs: clear. Cardiac: Irregular/mildly tachycardic rhythm, normal S1-2, no murmur. Abdomen: benign. Extremities: no edema, pulses intact. Neurologic: normal affect and conversation, nonfocal. Results & Data Laboratory Results Normal troponin. Magnesium 1.6 on admission, otherwise normal electrolytes with potassium 3.9 yesterday and 3.9 today. BUN 20, creatinine 0.62. Normal CBC. Diagnostic Findings Echocardiogram showed EF 60 to 65% with mild LVH and normal wall motion abnormality, normal RV size and systolic function, mild mitral regurgitation with moderately dilated left atrium. Chest x-ray was unremarkable. PG Care Time/CCT Total # of Minutes Spent Total Time Spent with Patient: Total time spent is greater than 50% in coordination of care (as documented) at patient's floor/unit and/or counseling patient: Coding Level of Care Code 25419 IN/OBS CONSULT LVL 4,60M Diagnoses Atrial fibrillation with rapid ventricular response I48.91 Confusion R41.0 CAD (coronary artery disease) I25.10 History of intravascular stent placement Z95.828 History of cardiomyopathy Z86.79
--- NOTE | 2022-12-30 15:36 | Hospitalist Progress Note ---
Date of Service December 30, 2022 Assessment & Plan (1) Atrial fibrillation with rapid ventricular response: Plan: Cardiology consultation and recommendations appreciated. Toprol-XL has been increased to twice daily dosing. Diltiazem drip has been discontinued. Cardiac echo reveals mild left ventricular hypertrophy with normal ejection fraction and moderate left atrial enlargement. Hopefully she can go home tomorrow, December 31 #Afib w/ RVR -pt with chronic afib on xarelto - #Confusion -presented with 3 weeks intermittent confusion, brain fog, dizziness. Ddx hy poperfusion 2/2 afib rvr, stroke, age related changes. Mild leukocytosis however does not appear to be infectious etiology. -CT head negative -ordered MRI to r/o stroke -afib control as above -cont. to monitor #CAD w/ stent #History of CHF -had massive NH with c #HLD -cont. home statin #DM2 -hold home Jardiance, metformin -started SSI #GERD -cont. home pantoprazole DVT ppx: xarelto FEN/GI: HH, DM2 Code Status: full Dispo: [facility] (2) Metabolic encephalopathy: Plan: Now resolved. No need for brain MRI scan. Head CT scan on admission was unremarkable (3) Hyperlipidemia: Plan: Stable. Continue statin therapy (4) DM2 (diabetes mellitus, type 2): Plan: ADA diet. Sliding scale coverage. Continue current medical manage (5) CAD (coronary artery disease): Plan: Stable. No chest pain. Continue current medical management (6) History of intravascular stent placement: Plan: Stable. Continue medication management (7) History of CHF (congestive heart failure): Plan: No overt CHF at the time of admission. Monitor intake and output. Cardiac echo reveals mild LVH with preserved ejection fraction and moderate left atrial enlargement. Her chronic CHF appears to be diastolic in nature Plan Hopeful discharge to home tomorrow, December 31 Admission and Anticipated Discharge Date Admission Date: December 29, 2022 Subjective Alert and oriented. No distress. Case discussed with cardiology. Diltiazem drip has been discontinued and metoprolol succinate increased to twice daily dosing. Thyroid profile is unremarkable. Cardiac echo reveals mild LVH with normal ejection fraction and moderate left atrial enlargement. Hopefully she will be able to go home tomorrow, December 31 Review of Systems Review of Systems: Constitutional-no fever or chills ENT-no blurred vision, no double vision, no epistaxis, no sore throat Respiratory-no cough, no wheezing, no shortness of breath Cardiac- no chest pain, no syncope GI-no nausea, vomiting, diarrhea, melena, hematochezia -no urinary retention, no urinary incontinence, no dysuria, no hematuria Musculoskeletal-no joint pain, no muscle tenderness Skin-no bruising, no rashes, no pruritus Neuro-no isolated weakness, no paresthesia, no weakness Psych-no depression, no anxiety Physical Exam Physical Exam: General-alert and oriented x3, no fevers, no chills HEENT-head atraumatic and normocephalic, pupils equal and reactive to light, extraocular muscles intact Neck-no lymphadenopathy or thyromegaly, trachea midline Chest-clear to auscultation percussion. No rales wheezing or rhonchi Cardiac-irregular rhythm. Controlled rate. Normal S1 and S2 Abdomen-normal bowel sounds, nontender, no hepatosplenomegaly Extremities-no cyanosis, clubbing, or edema Neuro-cranial nerves II through XII intact, motor and sensory function within normal limits, strength symmetrical , no focal deficits Psych-normal affect, normal mood Results & Data Results & Data Vital Signs (Past 12 Hours) Vital Signs Temp Pulse Pulse Resp BP BP Pulse Ox 12/30/22 15:16 36.6 C 51 L 16 119/79 96 12/30/22 13:00 57 L 20 101/68 97 12/30/22 12:00 60 24 98/60 L 12/30/22 11:00 58 L 18 110/66 12/30/22 10:00 102 H 20 113/71 97 12/30/22 08:01 102 H 21 100/79 96 12/30/22 07:00 91 H 12/30/22 06:33 36.5 C 95 H 18 96/76 L 95 12/30/22 05:00 73 22 94 12/30/22 05:00 96/71 L 12/30/22 04:00 87 19 95 12/30/22 04:00 92/70 L O2 Del Method 12/30/22 15:16 Room Air 12/30/22 13:00 12/30/22 12:00 12/30/22 11:00 12/30/22 10:00 12/30/22 08:01 12/30/22 07:00 12/30/22 06:33 Room Air 12/30/22 05:00 Room Air 12/30/22 05:00 12/30/22 04:00 Room Air 12/30/22 04:00 Laboratory Results 12/30/22 04:27 12/30/22 04:27 PG Care Time/CCT Total # of Minutes Spent Total Time Spent with Patient: Total time spent is greater than 50% in coordination of care (as documented) at patient's floor/unit and/or counseling patient: Coding Level of Care Code 62334 SUB INP/OBS CARE 3/50MIN Diagnoses Atrial fibrillation with rapid ventricular response I48.91 Metabolic encephalopathy G93.41 Hyperlipidemia E78.5 DM2 (diabetes mellitus, type 2) E11.9 CAD (coronary artery disease) I25.10 History of intravascular stent placement Z95.828 History of CHF (congestive heart failure) Z86.79
--- NOTE | 2022-12-30 16:02 | Discharge Summary ---
Date of Service December 30, 2022 Admission HPI Per Admitting Provider 67 yo female with PMHx HLD, DM2, CAD w/ stent, CHF, and afib on xarelto presents with afib rvr and confusion. 3 weeks ago patient started having increased frequency of palpitations and dizziness which she states is due to her afib when HR is >130s. This occurs as many as 3-4x/day. Since symptom onset she also endorses having periods of intermittent confusion and brain fog which is new for her. Denies falls. Denies fever, headache, vision changes, chest pain, shortness of breath, abdominal pain, nausea, vomiting, constipation, diarrhea, dysuria, extremity paresthesia/weakness. She has been compliant with her home medications. She follows with Dr. Avila at [facility] for her heart issues. She has been compliant with her medications. Of note she was recently seen in [place] 3 days ago for similar symptoms. She was deemed stable for discharge and had a follow-up appointment with her seat cover maker scheduled for March. Per patient, her last echo was about a year ago with EF in the 50s which was improved from previous EF in the 20s following PA/arrest and stent placement. Principal Diagnosis Recurrent atrial fibrillation with rapid ventricular rate Discharge Exam General-alert and oriented x3, no fevers, no chills HEENT-head atraumatic and normocephalic, pupils equal and reactive to light, extraocular muscles intact Neck-no lymphadenopathy or thyromegaly, trachea midline Chest-clear to auscultation percussion. No rales wheezing or rhonchi Cardiac-irregular rhythm. Controlled rate. Normal S1 and S2 Abdomen-normal bowel sounds, nontender, no hepatosplenomegaly Extremities-no cyanosis, clubbing, or edema Neuro-cranial nerves II through XII intact, motor and sensory function within normal limits, strength symmetrical , no focal deficits Psych-normal affect, normal mood Discharge Data Allergies Allergy/AdvReac Type Severity Reaction Status Date / Time fish oil Allergy Severe Anaphylaxis Verified 12/29/22 19:34 morphine AdvReac (makes me Verified 12/29/22 19:34 magdalena) Consultations 12/29/22 20:03 ED Decision to Admit Stat 12/29/22 21:13 Consult Cardiology Routine Ordered Studies 12/29/22 18:54 CT head/brain wo con Stat Hospital Course (1) Atrial fibrillation with rapid ventricular response: Cardiology consultation and recommendations appreciated. Toprol-XL has been increased to twice daily dosing. Diltiazem drip has been discontinued. Cardiac echo reveals mild left ventricular hypertrophy with normal ejection fraction and moderate left atrial enlargement. She has since converted to normal sinus rhythm. She will be discharged home today, December 30 (2) Metabolic encephalopathy: Now resolved. No need for brain MRI scan. Head CT scan on admission was unremarkable (3) Hyperlipidemia: Stable. Continue statin therapy (4) DM2 (diabetes mellitus, type 2): ADA diet. Sliding scale coverage. Continue current medical management (5) CAD (coronary artery disease): Stable. No chest pain. Continue current medical management (6) History of intravascular stent placement: Stable. Continue medication management (7) History of CHF (congestive heart failure): No overt CHF at the time of admission. Monitor intake and output. Cardiac echo reveals mild LVH with preserved ejection fraction and moderate left atrial enlargement. Her chronic CHF appears to be diastolic in nature Plan Home today, December 30. Metoprolol has been increased to twice daily dosing Total Time Total Time Spent Total Time Spent (In Minutes): 45-minute Discharge Plan Discharge Items Patient Disposition: Home - Self-Care Reason For Visit: AFIB, CONFUSION Discharge Diagnosis: Recurrent atrial fibrillation with rapid ventricular rate, transient metabolic encephalopathy Activity: Resume your previous activity Non-emergency contact: Primary Care Provider Call non-emergency contact if: you have any medication questions and your symptoms worsen Follow-up/Referrals: PCP,NO [Primary Care Provider] - Diet: Carb Consistent or DM2 and Heart Healthy Addtl Attending Provider Instructions: Metoprolol has been increased to twice daily dosing Pending Studies at Discharge: No Stand-Alone Forms: [employer], Smoking Cessation Medications and DC Order Prescriptions: New metoprolol succinate 50 mg Tablet Extended Release 24 Hr 50 mg PO Q12 Qty: 60 0RF Continued metformin 500 mg tablet 500 mg PO BIDWMEAL atorvastatin 80 mg tablet 80 mg PO DAILY clopidogrel 75 mg tablet 75 mg PO DAILY spironolactone 25 mg tablet 25 mg PO DAILY pantoprazole 40 mg tablet,delayed release (DR/EC) 40 mg PO DAILY Xarelto 20 mg tablet 20 mg PO DAILY Jardiance 10 mg tablet 10 mg PO QAM Entresto 49-51 mg tablet 1 tab PO BID cyanocobalamin (vitamin B-12) [Vitamin B-12] 500 mcg Tablet 500 mcg PO DAILY ferrous sulfate [iron] 325 mg (65 mg iron) Tablet 325 mg PO DAILY Changed magnesium oxide 400 mg (241.3 mg magnesium) tablet 400 mg PO BID Qty: 60 0RF Discontinued metoprolol succinate 50 mg tablet extended release 24 hr 50 mg PO HS Discharge Orders: Discharge Order (Routine); Ordered 12/30/22 Ordered By: Timoteo West Admission Data Admit Date/Time: 12/29/22 21:10 Attending Provider: Omar Medina Admit Provider: Kamaljit Tong Primary Care Provider: PCP,NO Other Providers: Cezar Ricks ; Omar Medina Coding Level of Care Code 67750 INP/OBS DISCH >30 MIN Diagnoses Atrial fibrillation with rapid ventricular response I48.91 Metabolic encephalopathy G93.41 Hyperlipidemia E78.5 DM2 (diabetes mellitus, type 2) E11.9 CAD (coronary artery disease) I25.10 History of intravascular stent placement Z95.828 History of CHF (congestive heart failure) Z86.79
== END 2022-12-30 17:24 | disposition home or self-care (01) | DRG 308 ==
LOC: ED 18:19 → EDINP 21:10 → 2E 21:38